=== PATIENT | male | born 1955 | race Caucasian/White ===

== ENCOUNTER → 2017-12-30 | Day surgery (SDC) | payer OTHER ==
[~2017-12-30] MED LIST: AMARYL2 MG PO; CHILDREN'S ASPI81 M1 PO; COLACE100 MG PO; HYDROCODONE-AP1 EAC6 PO; LIPITOR80 MG PO; METFORMIN HCL500 MG PO; NORCO 5-325 TA1 EACH PO; ZESTRIL20 MG PO; ZETIA10 MG PO; ZOLOFT50 MG PO; ZONISAMIDE 100100 M1 PO
[2017-12-30 06:29] LABS: HEMATOCRIT 48.2 % (42.0-52.0); HEMOGLOBIN 15.5 gm/dL (14.0-18.0); MCH 29.1 pg (26.0-34.0); MCHC 32.1 g/dL (28.0-37.0); MCV 90.6 fL (80.0-100.0); MPV 8.2 fl. (7.2-11.1); RBC 5.31 mil/uL (4.50-6.00); RDW-CV 15.5 % (10.5-14.5)
[2017-12-30 06:37] LABS: CALCIUM 8.9 mg/dL (8.5-10.1); POTASSIUM 4.3 mmol/L (3.5-5.1)
--- NOTE | 2017-12-30 11:05 | EKG ---
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 : 1955 Requested By: Kel Dobbins Order Number: [id number] Marisela MD: Josue Agustin Measurements Intervals [place] Rate: 86 P: 45 DC: 150 QRS: -20 QRSD: 106 T: 45 QT: 370 QTc: 443 Interpretive Statements Sinus rhythm Borderline left axis deviation Borderline low voltage, extremity leads No previous ECG available for comparison Electronically Signed On 12-30-2017 11:04:43 ASSISTANT FITNESS MANAGER by Josue Agustin [email or web address] <ELECTRONICALLY SIGNED> By: Josue Agustin MD, [facility] 12/30/17 1104 0630 9 Josue Agustin MD, FACC /EPI
--- NOTE | 2017-12-30 11:46 | PROC ---
[facility] [address] [place] [address] PROCEDURE REPORT Name: CHRIS EGAN Room: [facility]#: [id number] Admission: 12/30/17 Attend Phys: Kel Dobbins Discharge: Date of : 59 Report #: [id number] THIS REPORT FOR: //name// CC: Kel Gooden DATE OF SERVICE: 12/30/2017 PREOPERATIVE DIAGNOSIS: Incarcerated ventral incisional hernia. POSTOPERATIVE DIAGNOSIS: Incarcerated ventral incisional hernia. PROCEDURE: Open repair of incarcerated ventral incisional hernia with mesh. SURGEON: Kel Dobbins M.D. ANESTHESIA: General. ESTIMATED BLOOD LOSS: Minimal. SPECIMENS: None. DESCRIPTION OF PROCEDURE: After informed consent was obtained, the patient was brought to the operating room and placed supine. SCDs were placed and working, preoperative antibiotics were administered and general anesthesia was induced. The abdomen was prepped and draped in the usual sterile fashion. This was at the previous colostomy site. I, therefore, made a transverse incision measuring approximately 8 cm over the easily palpable defect. Cautery dissection was made down through the subcutaneous tissue. I encountered the hernia sac. The hernia sac was incised carefully. The small bowel underneath was protected at all times. I then dissected out the fascia by following the hernia sac down to the fascial edges. The defect measured approximately 3 x 3 cm. A Bard Ventralex mesh was brought into the field. This was a Ventralex ST hernia patch. It was sutured radially to the fascia with U stitches using 2-0 Prolene. A total of 10 sutures were placed. This covered the defect very nicely, with no tension. The area was then copiously irrigated with saline. The deep layer was closed with 3-0 Vicryl in running fashion. The skin was then closed with 4-0 Monocryl in running subcuticular fashion. Sterile dressings were applied. COMPLICATIONS: [place] [address] PROCEDURE REPORT Name: CHRIS EGAN Room: [facility]#: [id number] Admission: 12/30/17 Attend Phys: Kel Dobbins Discharge: Date of : 59 Report #: [id number] DISPOSITION: The patient was taken to recovery in satisfactory condition. <ELECTRONICALLY SIGNED> By: Kel Dobbins MD 12/30/17 1146 0906 [id number] Dobbins MD /nt
== END | disposition home or self-care (01) ==
LOC: M.SUR 06:06
PROVIDERS: Surgery
DX: K43.0 Incisional hernia with obstruction, without gangrene (principal); Z79.82 Long term (current) use of aspirin; Z79.899 Other long term (current) drug therapy; Z79.891 Long term (current) use of opiate analgesic

== ENCOUNTER 2018-07-21 05:58 | Day surgery (SDC) | payer OTHER ==
[~2018-07-21] VITALS: Ht 177.8 cm; Wt 172.4 kg
[~2018-07-21 05:58] MED LIST changes: -COLACE100 MG PO; -NORCO 5-325 TA1 EACH PO
[2018-07-21 06:20] LABS: HEMATOCRIT 45.3 % (42.0-52.0); HEMOGLOBIN 14.9 gm/dL (14.0-18.0); MCH 30.2 pg (26.0-34.0); MCHC 32.8 g/dL (28.0-37.0); MCV 91.9 fL (80.0-100.0); MPV 8.7 fl. (7.2-11.1); RBC 4.93 mil/uL (4.50-6.00); RDW-CV 14.6 % (10.5-14.5)
[2018-07-21 06:24] LABS: CALCIUM 8.4 mg/dL (8.5-10.1); CREATININE 0.9 mg/dL (0.6-1.3); POTASSIUM 4.2 mmol/L (3.5-5.1)
[2018-07-21 06:26] VITALS: BP 125/47
[2018-07-21 06:29] LABS: ALBUMIN 3.3 g/dL (3.4-5.0); TOTAL BILIRUBIN 0.5 mg/dL (<0.1-1.0)
[2018-07-21 11:00] VITALS: BP 105/38
[2018-07-21 13:17] VITALS: BP 105/38
[2018-07-21] MEDS ORDERED: NORCO 5-325 TA1 EACH PO (13:27)
[2018-07-21] MEDS ORDERED: COLACE100 MG PO (13:27)
[2018-07-21 14:44] VITALS: BP 105/38
--- NOTE | 2018-07-21 17:09 | EKG ---
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: : 1955 Requested By: Kel Dobbins Order Number: [id number] Marisela MD: Josue Agustin Measurements Intervals [place] Rate: 70 P: 46 NE: 164 QRS: -15 QRSD: 114 T: 44 QT: 424 QTc: 458 Interpretive Statements Sinus rhythm Ventricular premature complex Borderline intraventricular conduction delay Compared to ECG 12/30/2017 06:30:04 Ventricular premature complex(es) now present Electronically Signed On 07-21-2018 17:09:05 CDT by Josue Agustin [email or web address] <ELECTRONICALLY SIGNED> By: Josue Agustin MD, [facility] 07/21/18 0407 0625 0625 Josue Agustin MD, [facility] /EPI
--- NOTE | 2018-08-20 13:42 | OP ---
[facility] [address] [place] [address] OPERATIVE REPORT Name: CHRIS EGAN Room: [facility]#: [id number] Admission: 07/21/18 Attend Phys: Kel Dobbins Discharge: 07/21/18 Date of : 59 Report #: [id number] THIS REPORT FOR: //name// CC: Kel Gooden DATE OF SERVICE: 07/21/2018 PREOPERATIVE DIAGNOSIS: Incarcerated ventral incisional hernia. POSTOPERATIVE DIAGNOSIS: Incarcerated ventral incisional hernia. PROCEDURE: Open repair of incarcerated ventral incisional hernia with mesh. SURGEON: Kel Dobbins MD ANESTHESIA: General. ESTIMATED BLOOD LOSS: Minimal. SPECIMENS: None. DESCRIPTION OF PROCEDURE: After informed consent was obtained, the patient was brought to the operating room and placed supine. SCDs were placed and working, preoperative antibiotics were administered, general anesthesia was induced. The abdomen was prepped and draped in the usual sterile fashion. A 7-cm incision was made over the hernia defect, which was just to the right of the midline around the umbilicus. Dissection was made down to the fascia. The hernia sac was incised and excised. The fascial defect measured approximately 6 cm. I therefore used a 6.7 x 6.7 Bard mesh. This was placed into the defect. I then sutured it to the fascia in a radial fashion with 2-0 Prolene, taking a bite of the mesh and good bites of fascia. This was without any tension at all as it fit the defect nicely. The defect measured approximately 6 cm. After this had been stitched in I closed the incision with a 3-0 Vicryl for the deep layer and then 4-0 Monocryl in running subcuticular fashion for the skin. Incision was dressed with Steri-Strips and gauze. COMPLICATIONS: None. DISPOSITION: The patient was taken to recovery in satisfactory condition. <ELECTRONICALLY SIGNED> By: Kel Dobbins MD 08/20/18 1342 0849 [id number] Dobbins MD /nt
== END 2018-07-21 15:05 | disposition home or self-care (01) ==
LOC: M.SUR 05:58 → M.ORTHSURG 10:35 → M.SUR 11:44
PROVIDERS: Surgery
DX: K43.0 Incisional hernia with obstruction, without gangrene (principal); I10 Essential (primary) hypertension; E78.5 Hyperlipidemia, unspecified; E11.9 Type 2 diabetes mellitus without complications; M19.90 Unspecified osteoarthritis, unspecified site; Z79.899 Other long term (current) drug therapy; Z87.891 Personal history of nicotine dependence; Z96.653 Presence of artificial knee joint, bilateral; Z86.73 Personal history of transient ischemic attack (TIA), and cerebral infarction without residual deficits; Z88.0 Allergy status to penicillin; Z79.82 Long term (current) use of aspirin